=== PATIENT | female | born 1970 | race Caucasian/White ===

== ENCOUNTER 2017-06-04 18:28 | Emergency (ER) | payer OTHER ==
[~2017-06-04] VITALS: Ht 160 cm; Wt 74.8 kg
[~2017-06-04 18:28] MED LIST: CIPRO500 MG PO; DOCUSATE SODIU100 MG PO; HYDROMORPHONE HC2 MG PO; MACRODANTIN50 M1 PO; NITROFURANTOIN25 MG PO; NOHOMEMEDS; OXYCODONE HCL5 MG PO; PERCOCET 5/31 TABLET PO; PHENAZOPYRIDIN100 MG PO; TAMSULOSIN HCL0.4 MG PO; TRAMADOL HCL50 MG PO; VESICARE5 MG PO
[2017-06-04 19:08] LABS: EOSINOPHIL (%) 1.6 % (0-5); EOSINOPHIL COUNT 0.2 K/uL (0-0.3); HEMATOCRIT 47.4 % (36.0-46.0); IMMATURE GRANULOCYTE (%) 0.5 % (0.0-0.7); IMMATURE GRANULOCYTE COUNT 0.1 K/uL; INSTRUMENT ABS NEUTROPHIL CT 11.2 K/uL; LYMPHOCYTE COUNT 1.7 K/uL (1.0-2.8); MCH 31.4 PG (29.0-34.0); MCHC 33.5 G/DL (30.0-36.0); MCV 93.5 FL (83-99); MEAN PLAT.VOLUME 9.2 uM^3 (9.5-12.4); MONOCYTE (%) 4.9 % (3-12); MONOCYTE COUNT 0.7 K/uL (0-0.8); NEUTROPHIL (%) 80.6 % (45-76); NEUTROPHIL COUNT 11.2 K/uL (1.8-6.4); PLATELET COUNT 318 K/uL (156-360); RBC DIS.WIDTH-CV 13.1 % (11.8-14.6); RBC DIS.WIDTH-SD 44.7 % (39-53); RED BLOOD COUNT 5.07 M/uL (3.80-5.20); WHITE BLOOD COUNT 13.9 K/uL (4.1-10.2)
[2017-06-04 19:10] LABS: ADD MIUA? YES; BILIRUBIN NEGATIVE; BLOOD LARGE; COLOR YELLOW ((YELLOW)); GLUCOSE (STRIP) NEGATIVE; KETONES 20; LEUKOCYTES MODERATE; NITRITE NEGATIVE; PROTEIN (STRIP) NEGATIVE; SPECIFIC GRAVITY 1.011 (1.000-1.030); UROBILINOGEN 0.2 MG/DL (0.2-1.0)
[2017-06-04 19:19] LABS: CHLORIDE 105 mEq/L (99-109); SODIUM 141 mEq/L (136-147)
[2017-06-04 19:22] LABS: GLUCOSE 96 mg/dL (70-99)
[2017-06-04 19:23] LABS: ANION GAP 12 MEQ/L (2-14); TOTAL BILIRUBIN 0.6 mg/dL (0.0-1.0)
[2017-06-04 19:25] LABS: ALKALINE PHOSPHATASE 68 IU/L (3-129); GFR ESTIMATE (CALCULATED) > 59 mL/min/
[2017-06-04 19:27] LABS: DIRECT BILIRUBIN 0.2 mg/dL (0.0-0.3); UREA NITROGEN (BUN) 16 mg/dL (9-23)
[2017-06-04 19:29] LABS: LIPASE 4 U/L (1.0-51.0)
[2017-06-04 19:44] LABS: BACTERIA RARE /HPF; EPITHELIAL CELLS 1+ /HPF; MUCUS TRACE /LPF; RED BLOOD CELLS 40-50 /HPF (0-5); WHITE BLOOD CELLS 30-40 /HPF (0-5)
[2017-06-04] MEDS ORDERED: KEFLEX500 MG PO (22:03)
[2017-06-04] MEDS ORDERED: NORCO 7.5/321 TABLET PO (22:03)
[2017-06-04] MEDS ORDERED: MOTRIN800 MG PO (22:03)
[2017-06-04] MEDS ORDERED: ZOFRAN ODT4 MG PO (22:03)
[2017-06-04] MEDS ORDERED: FLOMAX0.4 MG PO (22:03)
[2017-06-04 22:40] VITALS: BP 169/81
== END 2017-06-04 22:44 | disposition home or self-care (01) ==
LOC: EME 18:28
PROVIDERS: Physician Assistant
DX: N13.2 Hydronephrosis with renal and ureteral calculous obstruction (principal); N39.0 Urinary tract infection, site not specified; F17.200 Nicotine dependence, unspecified, uncomplicated; Z87.442 Personal history of urinary calculi; Z98.890 Other specified postprocedural states
CPT/HCPCS: 74176; 80053; 81003; 82248; 83690; 85025; 87086; 99281; 99285; J0696; J1885

== ENCOUNTER 2017-09-19 19:25 | Emergency (ER) | payer OTHER ==
[~2017-09-19] VITALS: Ht 160 cm; Wt 73.0 kg
[~2017-09-19 19:25] MED LIST changes: +FLOMAX0.4 MG PO; +KEFLEX500 MG PO; +MOTRIN800 MG PO; +NORCO 7.5/321 TABLET PO; +ZOFRAN ODT4 MG PO
[2017-09-19 20:07] LABS: ADD MIUA? YES; BILIRUBIN NEGATIVE; BLOOD LARGE; COLOR YELLOW ((YELLOW)); GLUCOSE (STRIP) NEGATIVE; KETONES NEGATIVE; LEUKOCYTES LARGE; NITRITE NEGATIVE; PROTEIN (STRIP) 100; SPECIFIC GRAVITY 1.017 (1.000-1.030); UROBILINOGEN 0.2 MG/DL (0.2-1.0)
[2017-09-19 20:39] LABS: HEMATOCRIT 37.6 % (36.0-46.0); MCHC 33.2 G/DL (30.0-36.0); MCV 90.4 FL (83-99); PLATELET COUNT 489 K/uL (156-360); RBC DIS.WIDTH-CV 12.9 % (11.8-14.6); RBC DIS.WIDTH-SD 42.5 % (39-53); RED BLOOD COUNT 4.16 M/uL (3.80-5.20); WHITE BLOOD COUNT 15.5 K/uL (4.1-10.2)
[2017-09-19 20:48] LABS: CHLORIDE 101 mEq/L (99-109); POTASSIUM 3.8 mEq/L (3.7-5.4); SODIUM 137 mEq/L (136-147)
[2017-09-19 20:50] LABS: GLUCOSE 105 mg/dL (70-99)
[2017-09-19 20:51] LABS: ANION GAP 11 MEQ/L (2-14)
[2017-09-19 20:52] LABS: TOTAL BILIRUBIN 0.4 mg/dL (0.0-1.0)
[2017-09-19 20:54] LABS: ALKALINE PHOSPHATASE 173 IU/L (3-129); GFR ESTIMATE (CALCULATED) > 59 mL/min/
[2017-09-19 20:55] LABS: UREA NITROGEN (BUN) 12 mg/dL (9-23)
[2017-09-19 21:01] LABS: UCUL ADDED? YES; WHITE BLOOD CELLS TNTC /HPF (0-5)
[2017-09-19 21:04] LABS: QUANTITATIVE HCG < 4.0 MIU/ML
[2017-09-20] MEDS ORDERED: PERCOCET 5/31 TABLET PO (00:17)
[2017-09-20 00:41] VITALS: BP 124/76
== END 2017-09-20 00:43 | disposition home or self-care (01) ==
LOC: EME 19:25 → RME 19:25
DX: G89.18 Other acute postprocedural pain (principal); R10.9 Unspecified abdominal pain; Z87.442 Personal history of urinary calculi; F17.200 Nicotine dependence, unspecified, uncomplicated
CPT/HCPCS: 74176; 80053; 81003; 83605; 84702; 85027; 87040; 87077; 87086; 87186; 99281; 99285; J0696; J3010; J7030; J7050

== ENCOUNTER 2017-09-22 17:26 | Inpatient (IN) | payer OTHER ==
[~2017-09-22] VITALS: Ht 160 cm; Wt 77.0 kg
[2017-09-22 18:14] LABS: EOSINOPHIL (%) 0.3 % (0-5); EOSINOPHIL COUNT 0.1 K/uL (0-0.3); HEMATOCRIT 37.4 % (36.0-46.0); IMMATURE GRANULOCYTE (%) 1.4 % (0.0-0.7); IMMATURE GRANULOCYTE COUNT 0.2 K/uL; INSTRUMENT ABS NEUTROPHIL CT 12.4 K/uL; MCH 30.3 PG (29.0-34.0); MCHC 33.7 G/DL (30.0-36.0); MCV 89.9 FL (83-99); MEAN PLAT.VOLUME 8.9 uM^3 (9.5-12.4); MONOCYTE (%) 8.4 % (3-12); MONOCYTE COUNT 1.3 K/uL (0-0.8); NEUTROPHIL (%) 77.4 % (45-76); NEUTROPHIL COUNT 12.4 K/uL (1.8-6.4); PLATELET COUNT 486 K/uL (156-360); RBC DIS.WIDTH-CV 12.9 % (11.8-14.6); RBC DIS.WIDTH-SD 42.5 % (39-53); RED BLOOD COUNT 4.16 M/uL (3.80-5.20)
[2017-09-22 18:22] LABS: CHLORIDE 101 mEq/L (99-109); POTASSIUM 3.9 mEq/L (3.7-5.4); SODIUM 136 mEq/L (136-147)
[2017-09-22 18:24] LABS: GLUCOSE 121 mg/dL (70-99)
[2017-09-22 18:25] LABS: ANION GAP 14 MEQ/L (2-14)
[2017-09-22 18:27] LABS: GFR ESTIMATE (CALCULATED) > 59 mL/min/
[2017-09-22 18:28] LABS: UREA NITROGEN (BUN) 10 mg/dL (9-23)
[2017-09-22 18:43] LABS: ADD MIUA? YES; BILIRUBIN NEGATIVE; BLOOD SMALL; COLOR AMBER ((YELLOW)); GLUCOSE (STRIP) NEGATIVE; KETONES NEGATIVE; LEUKOCYTES MODERATE; NITRITE NEGATIVE; PROTEIN (STRIP) >=500; SPECIFIC GRAVITY 1.015 (1.000-1.030)
[2017-09-22 19:05] LABS: EPITHELIAL CELLS 1+ /HPF; MUCUS TRACE /LPF
[2017-09-22 19:06] LABS: BACTERIA 4+ /HPF; CASTS NONE SEEN /LPF; RED BLOOD CELLS RARE /HPF (0-5); UCUL ADDED? YES; WHITE BLOOD CELLS TNTC /HPF (0-5)
[2017-09-22] MEDS ORDERED: PERCOCET 10/1 TABLET PO (19:48)
[2017-09-22] MEDS ORDERED: CIPRO500 MG PO (19:50)
[2017-09-22] MEDS ORDERED: OXYBUTYNIN CHLO10 MG PO (19:51)
[2017-09-23 00:15] VITALS: BP 111/59
[2017-09-23 03:32] VITALS: BP 111/54
[2017-09-23 06:40] LABS: HEMATOCRIT 34.4 % (36.0-46.0); MCH 30.5 PG (29.0-34.0); MCHC 33.1 G/DL (30.0-36.0); MEAN PLAT.VOLUME 8.7 uM^3 (9.5-12.4); PLATELET COUNT 422 K/uL (156-360); RBC DIS.WIDTH-CV 13.1 % (11.8-14.6); RBC DIS.WIDTH-SD 44.1 % (39-53); RED BLOOD COUNT 3.74 M/uL (3.80-5.20); WHITE BLOOD COUNT 13.8 K/uL (4.1-10.2)
[2017-09-23 06:45] LABS: INTER. NORMALIZED RATIO 1.6; PROTHROMBIN TIME 18.2 SEC (10.2-12.9)
[2017-09-23 06:47] LABS: PTT 25.2 SEC (25-37)
[2017-09-23 07:06] LABS: ANION GAP 8 MEQ/L (2-14); CHLORIDE 104 MEQ/L (99-109); GFR ESTIMATE (CALCULATED) > 59 mL/min/; GLUCOSE 100 mg/dL (70-99); POTASSIUM 4.3 MEQ/L (3.7-5.4); SAMPLE HEMOLYSIS CHECK 0; SAMPLE ICTERIC CHECK 0; SAMPLE LIPEMIA CHECK 0; SODIUM 137 MEQ/L (136-147); UREA NITROGEN (BUN) 5 mg/dL (9-23)
[2017-09-23 08:08] VITALS: BP 110/58
[2017-09-23 12:06] VITALS: BP 119/63
[2017-09-23 20:28] VITALS: BP 107/62
[2017-09-24] VITALS (7 sets, daily range): BP systolic 101–118; BP diastolic 54–75
[2017-09-24 07:04] LABS: EOSINOPHIL (%) 1.1 % (0-5); EOSINOPHIL COUNT 0.1 K/uL (0-0.3); HEMATOCRIT 34.6 % (36.0-46.0); IMMATURE GRANULOCYTE (%) 1.8 % (0.0-0.7); IMMATURE GRANULOCYTE COUNT 0.2 K/uL; INSTRUMENT ABS NEUTROPHIL CT 9.5 K/uL; LYMPHOCYTE COUNT 2.1 K/uL (1.0-2.8); MCH 29.4 PG (29.0-34.0); MCHC 32.1 G/DL (30.0-36.0); MCV 91.8 FL (83-99); MEAN PLAT.VOLUME 9.2 uM^3 (9.5-12.4); MONOCYTE (%) 6.3 % (3-12); MONOCYTE COUNT 0.8 K/uL (0-0.8); NEUTROPHIL (%) 74.4 % (45-76); NEUTROPHIL COUNT 9.5 K/uL (1.8-6.4); PLATELET COUNT 413 K/uL (156-360); RBC DIS.WIDTH-CV 13.1 % (11.8-14.6); RBC DIS.WIDTH-SD 44.1 % (39-53); RED BLOOD COUNT 3.77 M/uL (3.80-5.20); WHITE BLOOD COUNT 12.7 K/uL (4.1-10.2)
[2017-09-24 07:25] LABS: ANION GAP 9 MEQ/L (2-14); CHLORIDE 100 MEQ/L (99-109); GFR ESTIMATE (CALCULATED) > 59 mL/min/; GLUCOSE 91 mg/dL (70-99); POTASSIUM 4.1 MEQ/L (3.7-5.4); SAMPLE HEMOLYSIS CHECK 0; SAMPLE ICTERIC CHECK 0; SAMPLE LIPEMIA CHECK 0; SODIUM 135 MEQ/L (136-147); UREA NITROGEN (BUN) 11 mg/dL (9-23)
[2017-09-25 05:08] VITALS: BP 110/56
[2017-09-25 07:05] LABS: EOSINOPHIL (%) 2.6 % (0-5); EOSINOPHIL COUNT 0.3 K/uL (0-0.3); HEMATOCRIT 32.7 % (36.0-46.0); IMMATURE GRANULOCYTE (%) 1.7 % (0.0-0.7); IMMATURE GRANULOCYTE COUNT 0.2 K/uL; INSTRUMENT ABS NEUTROPHIL CT 9.3 K/uL; MCH 29.5 PG (29.0-34.0); MCHC 32.4 G/DL (30.0-36.0); MCV 91.1 FL (83-99); MEAN PLAT.VOLUME 8.9 uM^3 (9.5-12.4); MONOCYTE (%) 5.5 % (3-12); MONOCYTE COUNT 0.7 K/uL (0-0.8); NEUTROPHIL (%) 73.9 % (45-76); NEUTROPHIL COUNT 9.3 K/uL (1.8-6.4); PLATELET COUNT 401 K/uL (156-360); RBC DIS.WIDTH-CV 13.1 % (11.8-14.6); RBC DIS.WIDTH-SD 43.8 % (39-53); RED BLOOD COUNT 3.59 M/uL (3.80-5.20); WHITE BLOOD COUNT 12.5 K/uL (4.1-10.2)
[2017-09-25 07:29] LABS: ANION GAP 8 MEQ/L (2-14); CHLORIDE 102 MEQ/L (99-109); GFR ESTIMATE (CALCULATED) > 59 mL/min/; GLUCOSE 126 mg/dL (70-99); POTASSIUM 3.3 MEQ/L (3.7-5.4); SAMPLE HEMOLYSIS CHECK 0; SAMPLE ICTERIC CHECK 0; SAMPLE LIPEMIA CHECK 0; SODIUM 137 MEQ/L (136-147); UREA NITROGEN (BUN) 7 mg/dL (9-23)
[2017-09-25 08:15] VITALS: BP 119/59
[2017-09-25 16:04] VITALS: BP 136/90
[2017-09-26] VITALS: BP 132/60
[2017-09-26 06:43] LABS: ANION GAP 9 MEQ/L (2-14); CHLORIDE 102 MEQ/L (99-109); GFR ESTIMATE (CALCULATED) > 59 mL/min/; GLUCOSE 123 mg/dL (70-99); POTASSIUM 3.6 MEQ/L (3.7-5.4); SAMPLE HEMOLYSIS CHECK 0; SAMPLE ICTERIC CHECK 0; SAMPLE LIPEMIA CHECK 0; SODIUM 140 MEQ/L (136-147); UREA NITROGEN (BUN) 7 mg/dL (9-23)
[2017-09-26 08:02] VITALS: BP 115/72
[2017-09-26] MEDS ORDERED: METRONIDAZOLE500 MG PO (11:12)
[2017-09-26 16:04] VITALS: BP 117/73
[2017-09-27] VITALS: BP 114/74
[2017-09-27 08:09] VITALS: BP 110/56
[2017-09-27 15:54] VITALS: BP 124/74
[2017-09-28 00:20] VITALS: BP 119/57
[2017-09-28 08:00] VITALS: BP 102/50
[2017-09-28 09:53] LABS: HEMATOCRIT 34.4 % (36.0-46.0); MCH 29.4 PG (29.0-34.0); MCHC 32.3 G/DL (30.0-36.0); MEAN PLAT.VOLUME 8.4 uM^3 (9.5-12.4); PLATELET COUNT 512 K/uL (156-360); RBC DIS.WIDTH-CV 13.2 % (11.8-14.6); RBC DIS.WIDTH-SD 43.8 % (39-53); RED BLOOD COUNT 3.78 M/uL (3.80-5.20); WHITE BLOOD COUNT 7.8 K/uL (4.1-10.2)
[2017-09-28 10:14] LABS: ANION GAP 9 MEQ/L (2-14); CHLORIDE 101 MEQ/L (99-109); GFR ESTIMATE (CALCULATED) > 59 mL/min/; GLUCOSE 124 mg/dL (70-99); MAGNESIUM 2.1 mg/dl (1.3-2.7); POTASSIUM 4.2 MEQ/L (3.7-5.4); SAMPLE HEMOLYSIS CHECK 2; SAMPLE ICTERIC CHECK 0; SAMPLE LIPEMIA CHECK 0; SODIUM 139 MEQ/L (136-147); UREA NITROGEN (BUN) 12 mg/dL (9-23)
== END 2017-09-28 15:20 | disposition home or self-care (01) | DRG 862 ==
LOC: EME 17:26 → 3EAST 22:28 → EDOF 22:28 → ENRESERV 22:29 → 3EAST 23:57
PROVIDERS: Hospitalist; Internal Medicine; Physician Assistant; Student in an Organized Health Care Education/Training Program
PROC: 0T9030Z Drainage of Right Kidney with Drainage Device, Percutaneous Approach (ICD-10-PCS; principal; 2017-09-23)
PROC: 0T9030Z Drainage of Right Kidney with Drainage Device, Percutaneous Approach (ICD-10-PCS; 2017-09-25)
DX: T81.4XXA Infection following a procedure, initial encounter (principal); Y83.8 Other surgical procedures as the cause of abnormal reaction of the patient, or of later complication, without mention of misadventure at the time of the procedure; A41.9 Sepsis, unspecified organism; N15.1 Renal and perinephric abscess; N39.0 Urinary tract infection, site not specified; B96.20 Unspecified Escherichia coli [E. coli] as the cause of diseases classified elsewhere; N99.89 Other postprocedural complications and disorders of genitourinary system; N28.1 Cyst of kidney, acquired; F12.90 Cannabis use, unspecified, uncomplicated; F17.210 Nicotine dependence, cigarettes, uncomplicated; N20.0 Calculus of kidney; Z91.19 Patient's noncompliance with other medical treatment and regimen
CPT/HCPCS: 49405; 71020; 74176; 74177; 75989; 80048; 80053; 81003; 83605; 83735; 84702; 85025; 85027; 85610; 85730; 87040; 87070; 87075; 87076; 87077; 87086; 87186; 87205; 99281; 99285; C1729; C1769; J0696; J1650; J3010; J7030; J7040; J7050

== ENCOUNTER → 2017-10-06 | Outpatient (CLI) | payer OTHER ==
[~2017-10-06] MED LIST changes: +METRONIDAZOLE500 MG PO; +OXYBUTYNIN CHLO10 MG PO; +PERCOCET 10/1 TABLET PO
== END | disposition home or self-care (01) ==
LOC: RAD 12:00 → EDSTATUS 12:00 → RAD 13:50
DX: N15.1 Renal and perinephric abscess (principal)
CPT/HCPCS: 74150